=== PATIENT | female | born 1970 | race Caucasian/White ===

== ENCOUNTER 2019-06-06 12:53 | Emergency (ER) | payer SELFPAY ==
[~2019-06-06] VITALS: Ht 172.7 cm; Wt 99.8 kg
[~2019-06-06 12:53] MED LIST: CYCL10TA2 PO; HYDR-3164 PO
[2019-06-06 13:21] VITALS: BP 143/89
--- NOTE | 2019-06-06 13:48 | PHYS DOC ---
Past Medical History Past Medical History: Diabetes-Type II Additional Past Medical Histor: neuropathy Past Surgical History: , Hysterectomy Additional Past Surgical Histo: R nephrectomy, ear tubes, L foot sx Alcohol Use: None Drug Use: None Adult General Chief Complaint Chief Complaint: FOOT INJURY PAIN HPI HPI Patient is a 48 year old female with a history of diabetes type 2 with neuropathy who presents to the ED today complaining of chronic 7 out of 10 throbbing bilateral feet from her neuropathy. She states she ran out of her tramadol. She states her last dose was this morning. She states she moved from [facility] and does not have a doctor here, she states she is trying to stay ahead of the pain and hence would like another prescription for tramadol. Review of Systems Review of Systems Constitutional: Denies fever or chills [] Musculoskeletal: Reports bilateral lower extremity neuropathy pain Integument: Denies rash or skin lesions [] Neurologic: Denies headache, focal weakness or sensory changes [] All other systems were reviewed and found to be within normal limits, except as documented in this note. Allergies Allergies Allergies Coded Allergies Type Severity Reaction Last Updated Verified Penicillins Allergy Unknown 09/26/16 Yes amitriptyline Allergy Unknown 09/26/16 Yes gabapentin Allergy Unknown 06/06/19 Yes hydrocodone Allergy Unknown 06/06/19 Yes oxycodone Allergy Unknown 09/26/16 Yes Physical Exam Physical Exam Constitutional: Well developed, well nourished, no acute distress, non-toxic appearance. [] Skin: Warm, dry, no erythema, no rash. [] Back: No tenderness, no CVA tenderness. [] Extremities: No tenderness, no cyanosis, no clubbing, ROM intact, no edema. Missing toes to the left foot. Neurologic: Alert and oriented X 3, normal motor function, normal sensory function, no focal deficits noted. [] Psychologic: Affect normal, judgement normal, mood normal. [] Current Patient Data Vital Signs Vital Signs Date Time Temp Pulse Resp B/P (MAP) Pulse Ox O2 Delivery O2 Flow Rate FiO2 06/06/19 13:21 98.5 91 16 143/89 (107) 97 Room Air 98.5 EKG EKG [] Radiology/Procedures Radiology/Procedures [] Course & Med Decision Making Course & Med Decision Making Pertinent Labs and Imaging studies reviewed. (See chart for details) This is a 48-year-old female patient presenting to the ED today with chronic neuropathy pain requesting tramadol. She ran out of the tramadol today. [facility]tr[facility] shows-she received a 15 days supply of tramadol on 05/29/2019. Information given to patient, she states she could have some tramadol at home. D/c to home. Provided doctors list for f/u. [place] Disclaimer Flor[place]ma Disclaimer This electronic medical record was generated, in whole or in part, using a voice recognition dictation system. Departure Departure Impression: Primary Impression: Painful diabetic neuropathy Disposition: 01 HOME, SELF-CARE Condition: STABLE Referrals: NO PCP (PCP) Follow-up with a doctor from the list provided Patient Instructions: Diabetic Neuropathy Additional Instructions: You were seen neuropathy pain. Please follow with your doctor or a doctor from the list provided NATHAN PARDO APRN Jun 06, 2019 13:48
== END 2019-06-06 14:00 | disposition home or self-care (01) ==
LOC: ER 12:53
DX: E11.40 Type 2 diabetes mellitus with diabetic neuropathy, unspecified (principal); M79.604 Pain in right leg; M79.605 Pain in left leg; Z98.890 Other specified postprocedural states; Z90.710 Acquired absence of both cervix and uterus; Z90.5 Acquired absence of kidney; Z88.0 Allergy status to penicillin; Z88.8 Allergy status to other drugs, medicaments and biological substances; Z88.5 Allergy status to narcotic agent
CPT/HCPCS: 99281